=== PATIENT | female | born 2000 | race African-American/Black ===

== ENCOUNTER 2020-02-04 10:22 | Outpatient (CLI) | payer BC, SELFPAY ==
[2020-02-04 11:00] VITALS: BP 138/96; PULSE 85
[2020-02-04 11:15] VITALS: BP 137/94; PULSE 76
[2020-02-04 11:21] LABS: Basophils Percent Auto 0.4 % (0.2-1.2); Eosinophils Absolute Auto 0.3 K/mm3 (0-0.3); Eosinophils Percent Auto 4.3 % (0-4.4); Hematocrit 32.8 % (37.0-47.0); Hemoglobin 11.1 g/dL (12.0-15.0); Immature Granulocyte Absolute 0.02 K/mm3 (0.00-0.031); Immature Granulocyte Percent A 0.3 % (0-0.5); Lymphocytes Absolute Auto 2.63 K/mm3 (0.9-3.2); Lymphocytes Percent Auto 38.6 % (18.3-44.2); Mean Corpuscular HGB Conc 33.8 g/dl (32-36); Mean Corpuscular Hemoglobin 31.4 pg (26-34); Mean Corpuscular Volume 92.9 fl (80-100); Mean Platelet Volume 11.5 fl (7.4-10.4); Monocytes Absolute Auto 0.8 K/mm3 (0.1-0.6); Monocytes Percent Auto 12.2 % (2.6-8.5); Neutrophils Percent Auto 44.2 % (45.5-73.1); Platelet Count Result 217 k/mm3 (150-375); Red Blood Count 3.53 M/mm3 (4.2-5.4); Red Cell Distribution Width 12.8 % (11.5-14.5); White Blood Count 6.8 K/mm3 (4.5-10.0)
[2020-02-04 11:27] LABS: Add Urine Microscopic? YES; Appearance Urine Clear (Clear); Bacteria Urine Trace /hpf; Bilirubin Urine Negative (Negative); Blood Urine Negative (Negative); Color Urine Straw (Yellow); Glucose Urine UA Negative (Negative); Ketones Urine Negative (Negative); Leukocyte Esterase Ur 1+ LEU/UL (NEGATIVE); Nitrate Urine Negative (Negative); Protein Urine Negative (Negative); RBC Urine 0-2 /hpf (0-2); Squamous Epithelial Cell Urine Many /hpf (Few); Urobilinogen Urine Negative mg/dL (<2.0); WBC Urine 0-3 /hpf (0-3)
[2020-02-04 11:30] LABS: Creatinine Urine 48.4 mg/dL; Total Protein Urine Random 12 mg/dL
[2020-02-04 11:33] LABS: Alanine Aminotransferase 9 U/L (4-35); Albumin Level 3.3 g/dL (3.5-5.1); Alkaline Phosphatase 134 U/L (38-126); Aspartate Amino Transferase 18 U/L (14-36); Bilirubin,Total < 0.1 mg/dL (0.2-1.3); Blood Urea Nitrogen 11 mg/dL (7-17); Calcium 9.3 mg/dL (8.4-10.2); Carbon Dioxide 21 mmol/L (22-30); Chloride 107 mmol/L (98-107); Estimated Glomerular Filt Rate > 60; Glucose 89 mg/dL (65-105); Sodium 135 mmol/L (137-145); Uric Acid 4.9 mg/dL (2.5-7.5)
[2020-02-04 12:05] VITALS: BP 144/84; PULSE 86
--- NOTE | 2020-02-04 12:13 | PC.NURSE ---
Liz Leal notified of BP's and lab results. Order for DC and 24 hour urine. No need for repeat BPP.
[2020-02-04 12:15] VITALS: BP 134/90; PULSE 75
[2020-02-04 12:25] VITALS: BP 138/95; PULSE 78
[2020-02-04 12:56] VITALS: BP 138/96; PULSE 80
== END 2020-02-04 12:20 | disposition home or self-care (01) ==
LOC: ANHOBOP 10:53 → ANHOBPP 10:55
PROVIDERS: Visit Provider Obstetrics & Gynecology
DX: O13.9 Gestational [pregnancy-induced] hypertension without significant proteinuria, unspecified trimester (principal)
CPT/HCPCS: 36415; 59025; 80053; 81001; 82570; 84156; 84550; 85025; 87086; 99199

== ENCOUNTER 2020-02-23 19:46 | Inpatient (IN) | payer OTHER, BC, SELFPAY ==
[2020-02-23] VITALS (24 sets, daily range): BP systolic 129–169; BP diastolic 66–104; PULSE 76–135; RESP 15–16; TEMP 36.6; BMI 31.8
--- NOTE | 2020-02-23 17:54 | OBADM ---
This patient, Suma Yang, admitted to the OB room OB Post 115 for observation. Patient/family oriented to hospital policies and general routines including ID bracelet, bed and alarms, visiting hours, pain management, procedures, bathroom and other care routines, personal items, smoking policy, room service/diet, and visiting hours. Patient/Family are encouraged to report perceived risks to care and to ask questions if they do not understand what they are told or what they should do.
[2020-02-23 19:01] LABS: Basophils Percent Auto 0.4 % (0.2-1.2); Eosinophils Absolute Auto 0.2 K/mm3 (0-0.3); Eosinophils Percent Auto 2.5 % (0-4.4); Hematocrit 32.1 % (37.0-47.0); Hemoglobin 11.1 g/dL (12.0-15.0); Immature Granulocyte Absolute 0.02 K/mm3 (0.00-0.031); Immature Granulocyte Percent A 0.3 % (0-0.5); Lymphocytes Absolute Auto 2.51 K/mm3 (0.9-3.2); Lymphocytes Percent Auto 33.3 % (18.3-44.2); Mean Corpuscular HGB Conc 34.6 g/dl (32-36); Mean Corpuscular Hemoglobin 31.3 pg (26-34); Mean Corpuscular Volume 90.4 fl (80-100); Mean Platelet Volume 11.9 fl (7.4-10.4); Monocytes Absolute Auto 0.8 K/mm3 (0.1-0.6); Monocytes Percent Auto 10.9 % (2.6-8.5); Neutrophils Percent Auto 52.6 % (45.5-73.1); Platelet Count Result 219 k/mm3 (150-375); Red Blood Count 3.55 M/mm3 (4.2-5.4); Red Cell Distribution Width 12.7 % (11.5-14.5); White Blood Count 7.5 K/mm3 (4.5-10.0)
[2020-02-23 19:05] LABS: Add Urine Microscopic? YES; Appearance Urine Clear (Clear); Bacteria Urine Trace /hpf; Bilirubin Urine Negative (Negative); Blood Urine Negative (Negative); Color Urine Yellow (Yellow); Glucose Urine UA Negative (Negative); Ketones Urine Negative (Negative); Leukocyte Esterase Ur Trace LEU/UL (NEGATIVE); Mucus Urine Heavy /lpf; Nitrate Urine Negative (Negative); Protein Urine 3+ mg/dL (Negative); RBC Urine 0-2 /hpf (0-2); Specific Grav Ur 1.029 (1.001-1.035); Squamous Epithelial Cell Urine Many /hpf (Few); WBC Urine 0-3 /hpf (0-3)
[2020-02-23 19:32] LABS: Alanine Aminotransferase 7 U/L (4-35); Albumin Level 3.2 g/dL (3.5-5.1); Alkaline Phosphatase 142 U/L (38-126); Anion Gap 6 mmol/L (8-16); Aspartate Amino Transferase 18 U/L (14-36); Bilirubin,Total < 0.1 mg/dL (0.2-1.3); Blood Urea Nitrogen 9 mg/dL (7-17); Calcium 9.2 mg/dL (8.4-10.2); Carbon Dioxide 21 mmol/L (22-30); Chloride 109 mmol/L (98-107); Estimated Glomerular Filt Rate > 60; Glucose 87 mg/dL (65-105); Sodium 136 mmol/L (137-145); Uric Acid 5.2 mg/dL (2.5-7.5)
--- NOTE | 2020-02-23 19:37 | PC.NURSE ---
Updated Dr. Dexter on patient lab results, maternal assessment and vital sings. Updated on FHT and Uterine activity. Orders received.
[2020-02-23 19:55] LABS: Creatinine Urine 386.5 mg/dL
[2020-02-23] MEDS: BETAMETHASONE SOD PHOS/ACETATE 30 MG/5 ML VIAL 12 MG IM (19:55)
[2020-02-23] MEDS: LACTATED RINGERS 1,000 ML 75 ML IV CONT (20:00)
[2020-02-23] MEDS: MAGNESIUM SULF 4 GM/WATER100ML 4 GM/100 ML BAG IVPB (20:00)
[2020-02-23 20:05] LABS: Total Protein Urine Random 341 mg/dL
[2020-02-23] MEDS: LABETALOL HCL INJ 100 MG/20 ML VIAL 20 MG IV PUSH (20:05)
--- NOTE | 2020-02-23 20:26 | PC.NURSE ---
Updated Dr. Dexter on patient lab results. Orders received. NST patient qshift. Vital signs per protocol.
[2020-02-23] MEDS: MAGNESIUM SULF 20GM/WATER500ML 500 ML 50 MG IV CONT (20:43)
--- NOTE | 2020-02-23 23:16 | PC.NURSE ---
2301 blood pressure cuff was not on patient properly upon patient assessment. RN at bedside, re-evaluated blood pressure at 2314 and pt denies any signs and symptoms, blood pressure running more in patients normal. Advised to call out for RN if patient not feeling well or has any questions. Pt verbalizes understanding. Per protocol, blood pressures moved to hourly. JAMAR Wei
[2020-02-24] VITALS (216 sets, daily range): BP systolic 122–156; BP diastolic 76–102; PULSE 59–184; RESP 14–22; TEMP 35.6–36.8; O2SAT 81–100
[2020-02-24] MEDS: CALCIUM CARBONATE (TUMS) 500 MG (200 MG ELEMENTAL) PO ×2 (01:44→09:59)
[2020-02-24] MEDS: ONDANSETRON INJ 4 MG/2 ML VIAL IV PUSH (05:17)
--- NOTE | 2020-02-24 05:22 | PC.NURSE ---
0130 Pt state she is having some heartburn and would like tums to treat. BG
--- NOTE | 2020-02-24 05:22 | PC.NURSE ---
0500 Pt states that the heartburn went away, but she is nauseous and would like medication to help with this. Medication given at 0517. BG
--- NOTE | 2020-02-24 05:23 | PC.NURSE ---
0200 blood pressure cuff was taken off by patient, therefor no pressure was obtained. BG
--- NOTE | 2020-02-24 06:13 | PC.NURSE ---
0610 report given and care turned over to Gudelia Alvarado, RN - BG
[2020-02-24] MEDS: MAGNESIUM SULF 20GM/WATER500ML 500 ML 50 MG IV CONT ×2 (06:49→17:31)
--- NOTE | 2020-02-24 08:20 | PM.IMHP ---
H&P: HPI History of Present Illness Date/Time: 02/24/20 08:20 Chief complaint: Hypertension in Narrative: Suma Yang is a 20 year old female 1 at 34 weeks and 5/7 days. She presented to the clinic with elevated blood pressure and headache. She had some severe range pressures in office. Labor and delivery. She is stable at this time with normal blood pressures and normal labs. She denies any headache or epigastric pain at this time. She does report some increased swelling over the past few days. She reports good movement. She denies any contractions, loss of fluid, vaginal bleeding. She denies any chest pain or shortness of breath. Review of Systems Constitutional: Constitutional: Reports no additional constitutional complaints, Denies fatigue, Denies headache(s), Denies lethargy and Denies weakness Eyes: Eyes: Reports no additional eye complaints, Denies blurry vision and Denies photophobia ENT: Reports as per HPI, Denies headache(s) and Denies neck pain Cardiovascular: Cardiovascular: Denies chest pain, Denies diaphoresis, Denies leg edema, Denies palpitations and Denies dyspnea Respiratory: Respiratory: Denies hemoptysis, Denies dyspnea and Denies wheezing Gastrointestinal: Gastrointestinal: Denies abdominal pain, Denies melena, Denies bloating, Denies hematochezia, Denies nausea and Denies vomiting Genitourinary: Genitourinary: Reports no additional female genitourinary complaints Musculoskeletal: Musculoskeletal: Denies joint swelling, Denies neck pain, Denies numbness and Denies stiffness Neurologic: Denies Abnormal speech present, Denies confusion, Denies headache(s), Denies numbness and Denies weakness Psychiatric: Psychiatric: Denies anxiety, Denies confusion, Denies depression, Denies homicidal ideation and Denies suicidal ideation Endocrine: Endocrine: Denies fatigue and Denies palpitations Allergic/Immunologic: Allergic/Immunologic: Denies wheezing PMFSH Social History Social History Smoking status: Never smoker Substance use: never Gender identity (if verbalized by the patient): Female Spiritual care concerns: No Meds Home Medications and Allergies Home Medications Medication Instructions Recorded Confirmed Type vit no.[id number] 1 tablet PO DAILY 02/23/20 02/23/20 History [ Vitamin] Allergies Allergy/AdvReac Type Severity Reaction Status Date / Time No Known Allergies Allergy Verified 02/23/20 19:09 Vital Signs Vital Signs - 24 hr 02/23/20 18:29 02/23/20 18:30 02/23/20 19:01 Temperature 97.8 F Pulse Rate 84 89 135 H Respiratory Rate Blood Pressure 147/82 H 141/93 H 159/104 H Blood Pressure [Right Arm] 147/82 H Pulse Oximetry 02/23/20 19:04 02/23/20 19:16 02/23/20 19:31 Temperature Pulse Rate 84 82 81 Respiratory Rate Blood Pressure 157/101 H 163/104 H Blood Pressure [Right Arm] 159/104 H Pulse Oximetry 02/23/20 19:46 02/23/20 20:00 02/23/20 20:05 Temperature 97.8 F Pulse Rate 85 85 86 Respiratory Rate 15 Blood Pressure 164/98 H 164/98 H Blood Pressure [Right Arm] Pulse Oximetry 02/23/20 20:09 02/23/20 20:11 02/23/20 20:15 Temperature Pulse Rate 93 94 92 Respiratory Rate Blood Pressure 149/93 H 140/97 H 145/88 H Blood Pressure [Right Arm] Pulse Oximetry 02/23/20 20:20 02/23/20 20:26 02/23/20 20:31 Temperature Pulse Rate 90 93 95 Respiratory Rate Blood Pressure 132/93 H 129/66 138/68 Blood Pressure [Right Arm] Pulse Oximetry 02/23/20 20:43 02/23/20 20:46 02/23/20 21:00 Temperature Pulse Rate 95 91 91 Respiratory Rate 16 Blood Pressure 138/68 160/103 H 158/104 H Blood Pressure [Right Arm] Pulse Oximetry 02/23/20 21:06 02/23/20 21:16 02/23/20 21:31 Temperature Pulse Rate 83 86 90 Respiratory Rate Blood Pressure 150/94 H 158/89 H 142/80 H Blood Pressure [Right Arm] Pulse Oximetry
--- NOTE | 2020-02-24 08:22 | PC.NURSE ---
Dr. Dexter on unit and updated on pt's BP- but it was taken this morning with her laying on her side dozing. Discussed antihypertensives and decision made to start on Labetalol q12 hr and labs now and then every 8 hrs. would like a SVE today and considering starting Cervidil tonight after 2nd dose of Celestone.
[2020-02-24] MEDS: LABETALOL HCL 100 MG TABLET 200 MG PO ×2 (08:38→08:57)
--- NOTE | 2020-02-24 08:40 | PC.NURSE ---
Dr. Dexter in pt room and updated on BP of 153/102 with pt sitting up in bed. Order received to give another 200mg dose of Labetalol and increase to 400 mg BID.
[2020-02-24] MEDS: FAMOTIDINE 20 MG TABLET PO ×2 (08:57→20:53)
[2020-02-24 08:58] LABS: Mean Platelet Volume 11.6 fl (7.4-10.4); Platelet Count Result 249 k/mm3 (150-375)
[2020-02-24 09:14] LABS: Alanine Aminotransferase 11 U/L (4-35); Albumin Level 3.7 g/dL (3.5-5.1); Alkaline Phosphatase 185 U/L (38-126); Anion Gap 9 mmol/L (8-16); Aspartate Amino Transferase 21 U/L (14-36); Bilirubin,Total 0.2 mg/dL (0.2-1.3); Blood Urea Nitrogen 7 mg/dL (7-17); Calcium 8.6 mg/dL (8.4-10.2); Carbon Dioxide 19 mmol/L (22-30); Chloride 104 mmol/L (98-107); Estimated CRCL calculation 160 ml/min; Estimated Glomerular Filt Rate > 60; Glucose 120 mg/dL (65-105); Potassium 4.4 mmol/L (3.4-5.0); Sodium 132 mmol/L (137-145)
[2020-02-24] MEDS: LACTATED RINGERS 1,000 ML 75 ML IV CONT (09:58)
[2020-02-24 17:27] LABS: Mean Platelet Volume 11.6 fl (7.4-10.4); Platelet Count Result 231 k/mm3 (150-375)
[2020-02-24 17:40] LABS: Alanine Aminotransferase 12 U/L (4-35); Albumin Level 3.5 g/dL (3.5-5.1); Alkaline Phosphatase 162 U/L (38-126); Anion Gap 8 mmol/L (8-16); Aspartate Amino Transferase 22 U/L (14-36); Bilirubin,Total 0.1 mg/dL (0.2-1.3); Blood Urea Nitrogen 8 mg/dL (7-17); Calcium 8.1 mg/dL (8.4-10.2); Carbon Dioxide 20 mmol/L (22-30); Chloride 104 mmol/L (98-107); Estimated CRCL calculation 136 ml/min; Estimated Glomerular Filt Rate > 60; Glucose 112 mg/dL (65-105); Potassium 4.2 mmol/L (3.4-5.0); Sodium 132 mmol/L (137-145); Uric Acid 5.4 mg/dL (2.5-7.5)
[2020-02-24] MEDS: DINOPROSTONE 10 MG VAG INSERT VAGINAL (19:18)
--- NOTE | 2020-02-24 19:27 | PC.NURSE ---
Dr. Dexter informed of lab results and pt has a headache. Nursery requesting UDS due to + THC during . Orders received.
[2020-02-24] MEDS: ACETAMINOPHEN 500 MG TABLET 1000 MG PO (19:48)
[2020-02-24] MEDS: BETAMETHASONE SOD PHOS/ACETATE 30 MG/5 ML VIAL 12 MG IM (19:49)
[2020-02-24] MEDS: AMPICILLIN 2 GM/NS 100 ML 2 GM/100 ML BAG IVPB (19:52)
[2020-02-24 20:17] LABS: Amphetamine Screen Urine Negative (Negative); Barbiturate Screen Urine Negative (Negative); Benzodiazepines Screen Urine Negative (Negative); Cannabinoid Screen Urine Negative (Negative); Cocaine Screen Urine Negative (Negative); Methadone Screen Urine Negative (Negative); Opiate Screen Urine Negative (Negative); Phencyclidine Screen Urine Negative (Negative)
[2020-02-24] MEDS: LABETALOL HCL 100 MG TABLET 400 MG PO (20:53)
[2020-02-24] MEDS: AMPICILLIN 1 GM/NS 50 ML 1 GM/50 ML BAG IVPB (23:58)
[2020-02-25] VITALS (350 sets, daily range): BP systolic 116–159; BP diastolic 58–107; PULSE 25–151; RESP 16–18; TEMP 36.7–37.3; O2SAT 80–100
[2020-02-25] MEDS: MAGNESIUM SULF 20GM/WATER500ML 500 ML 50 MG IV CONT ×3 (03:38→23:59)
[2020-02-25] MEDS: AMPICILLIN 1 GM/NS 50 ML 1 GM/50 ML BAG IVPB ×5 (03:55→20:11)
[2020-02-25 05:06] LABS: Hematocrit 31.1 % (37.0-47.0); Hemoglobin 10.5 g/dL (12.0-15.0); Mean Corpuscular HGB Conc 33.8 g/dl (32-36); Mean Corpuscular Hemoglobin 30.9 pg (26-34); Mean Corpuscular Volume 91.5 fl (80-100); Mean Platelet Volume 11.8 fl (7.4-10.4); Platelet Count Result 224 k/mm3 (150-375); Red Cell Distribution Width 12.8 % (11.5-14.5); White Blood Count 9.7 K/mm3 (4.5-10.0)
[2020-02-25 05:30] LABS: Alanine Aminotransferase 10 U/L (4-35); Albumin Level 3.2 g/dL (3.5-5.1); Alkaline Phosphatase 156 U/L (38-126); Anion Gap 6 mmol/L (8-16); Aspartate Amino Transferase 18 U/L (14-36); Bilirubin,Total < 0.1 mg/dL (0.2-1.3); Blood Urea Nitrogen 8 mg/dL (7-17); Calcium 7.2 mg/dL (8.4-10.2); Carbon Dioxide 19 mmol/L (22-30); Chloride 107 mmol/L (98-107); Estimated CRCL calculation 136 ml/min; Estimated Glomerular Filt Rate > 60; Glucose 133 mg/dL (65-105); Potassium 4.5 mmol/L (3.4-5.0); Sodium 132 mmol/L (137-145); Uric Acid 5.5 mg/dL (2.5-7.5)
--- NOTE | 2020-02-25 07:13 | PM.OBPNLAB ---
Pain Control Date/time seen: 02/25/20 07:13 Pain control: tolerating well Pelvic Exam Dilation (cm): 0 Effacement (%): 70 station: -3 Amniotic membrane status: Intact Comments: cervadil removed Contractions Monitor mode: External Contraction pattern: Irregular Contraction intensity: Mild Status status: Category l Assessment and Plan Comments: 1. preeclampsia: plan to have breakfast and then start high dose pitocin BP non severe range will continue with magnesium sulfate and continue to monitor
[2020-02-25 07:51] LABS: Rapid Plasma Reagin Non-Reactive (NonReactive)
[2020-02-25] MEDS: OXYTOCIN 30 UNITS/NS 500 ML 30 UNITS/500 ML BAG 6 UNITS IV CONT (08:28)
[2020-02-25] MEDS: LABETALOL HCL 100 MG TABLET 400 MG PO ×2 (09:00→20:55)
[2020-02-25] MEDS: FAMOTIDINE 20 MG TABLET PO ×2 (09:01→20:55)
[2020-02-25] MEDS: ONDANSETRON INJ 4 MG/2 ML VIAL IV PUSH (15:09)
[2020-02-25] MEDS: LACTATED RINGERS 1,000 ML 75 ML IV CONT (15:47)
--- NOTE | 2020-02-25 16:50 | PM.OBPNLAB ---
Pain Control Date/time seen: 02/25/20 16:50 FHT: 130, moderate variability, reactive, no recent decelerations. AROM with clear fluid and IUPC placed easily. Cervix 2/50/-2. Continue pitocin induction and magnesium due to severe pre-E. Patient is aware and agrees with the plan Pelvic Exam Effacement (%): 70 station: -3 Contractions Monitor mode: External Contraction pattern: Irregular Contraction intensity: Mild Status status: Category l
--- NOTE | 2020-02-25 17:14 | WPDANESEPPF ---
Anes - Initial Pre Proc Eval Procedure: labor epidural Date/Time: 02/25/20 17:14 Surgeon: Rosaline Dexter MD Pre Op Diagnosis: labor pain Pre Op Diagnosis: Hypertension in Patient Data Age: 20 Gender: F Height: 1.65 m Weight: 87 kg Last Vital Signs Temp 37.2 C 02/25/20 13:33 Pulse 90 02/25/20 16:30 Resp 18 02/25/20 13:33 BP 150/102 H 02/25/20 16:30 Pulse Ox 96 02/25/20 17:09 Allergies Allergy/AdvReac Type Severity Reaction Status Date / Time No Known Allergies Allergy Verified 02/23/20 19:09 Home Medications Medication Instructions Recorded Confirmed Type vit no.[id number] 1 tablet PO DAILY 02/23/20 02/23/20 History [ Vitamin] Laboratory Tests 02/24/20 02/24/20 02/24/20 08:51 17:14 17:14 WBC RBC Hgb Hct MCV MCH MCHC RDW Plt Count 231 k/mm3 k/mm3 (150-375) MPV 11.6 fl H fl (7.4-10.4) Sodium 132 mmol/L L mmol/L (137-145) Potassium 4.2 mmol/L mmol/L (3.4-5.0) Chloride 104 mmol/L mmol/L (98-107) Carbon Dioxide 20 mmol/L L mmol/L (22-30) Anion Gap 8 mmol/L mmol/L (8-16) BUN 8 mg/dL mg/dL (7-17) Creatinine 0.60 mg/dL L mg/dL (0.7-1.0) Estim Creat Clear Calc 136 ml/min ml/min Estimated GFR > 60 (59 - ) Glucose 112 mg/dL H mg/dL (65-105) Uric Acid 5.4 mg/dL mg/dL (2.5-7.5) Calcium 8.1 mg/dL L mg/dL (8.4-10.2) Total Bilirubin 0.1 mg/dL L mg/dL (0.2-1.3) AST 22 U/L U/L (14-36) ALT 12 U/L U/L (4-35) Alkaline Phosphatase 162 U/L H U/L (38-126) Total Protein 7.0 g/dL g/dL (6.3-8.2) Albumin 3.5 g/dL g/dL (3.5-5.1) Urine Opiates Screen Urine Methadone Screen Ur Barbiturates Screen Ur Phencyclidine Scrn Ur Amphetamine Screen U Benzodiazepines Scrn Urine Cocaine Screen U Cannabinoids Screen RPR Non-reactive (NonReactive) 02/24/20 02/25/20 02/25/20 19:55 04:56 04:56 WBC 9.7 K/mm3 K/mm3 (4.5-10.0) RBC 3.40 M/mm3 L M/mm3 (4.2-5.4) Hgb 10.5 g/dL L g/dL (12.0-15.0) Hct 31.1 % L % (37.0-47.0) MCV 91.5 fl fl (80-100) MCH 30.9 pg pg (26-34) MCHC 33.8 g/dl g/dl (32-36) RDW 12.8 % % (11.5-14.5) Plt Count 224 k/mm3 k/mm3 (150-375) MPV 11.8 fl H fl (7.4-10.4) Sodium 132 mmol/L L mmol/L (137-145) Potassium 4.5 mmol/L mmol/L (3.4-5.0) Chloride 107 mmol/L mmol/L (98-107) Carbon Dioxide 19 mmol/L L mmol/L (22-30) Anion Gap 6 mmol/L L mmol/L (8-16) BUN 8 mg/dL mg/dL (7-17) Creatinine 0.60 mg/dL L mg/dL (0.7-1.0) Estim Creat Clear Calc 136 ml/min ml/min Estimated GFR > 60 (59 - ) Glucose 133 mg/dL H mg/dL (65-105) Uric Acid 5.5 mg/dL mg/dL (2.5-7.5) Calcium 7.2 mg/dL L mg/dL (8.4-10.2) Total Bilirubin < 0.1 mg/dL L mg/dL (0.2-1.3) AST 18 U/L U/L (14-36) ALT 10 U/L U/L (4-35) Alkaline Phosphatase 156 U/L H U/L (38-126) Total Protein 6.0 g/dL L g/dL (6.3-8.2) Albumin 3.2 g/dL L g/dL (3.5-5.1) Urine Opiates Screen Negative (Negative) Urine Methadone Screen Negative (Negative) Ur Barbiturates Screen Negative (Negative) Ur Phencyclidine Scrn Negative (Negative) Ur Amphetamine Screen Negative (Negative) U Benzodiazepines Scrn Negative (Negative) Urine Cocaine Screen Negative (Negative) U Cannabinoids Screen Negative
[2020-02-26] VITALS (41 sets, daily range): BP systolic 122–151; BP diastolic 55–87; PULSE 70–102; RESP 16–18; TEMP 36.7–37.7; O2SAT 96–100
--- NOTE | 2020-02-26 00:02 | P.PCNOB_ITS ---
OB - Delivery Note Procedure Delivery date: 02/25/20 Procedure: events: Pre-Eclampsia and Labor Induction Intrapartal events: Severe Preeclampsia Induction method: AROM, per misoprostol protocol and per pitocin protocol Delivery monitor: external FHT, external uterine and internal uterine Route of delivery: Laceration description: Periurethral - 1st Degree Delivery repair: vicryl (3-0) Specimen: Yes Estimated blood loss (mL): 112 Anesthesia type: Epidural Disposition: floor [place] Baby Date of : 02/25/20 Time of : 23:45 Weeks of gestation at delivery: 35 gender: Female Weight (pounds): 3 Weight (ounces): 12 presentation: vertex position: Left Occiput Anterior Placenta delivery description: Spontaneous cord vessel description: 3 Vessels and Clamped/Cut score one minute: 5 score five minutes: 9
[2020-02-26] MEDS: OXYTOCIN 30 UNITS/NS 500 ML 30 UNITS/500 ML BAG 125 UNITS IV CONT (00:19)
[2020-02-26] MEDS: WITCH HAZEL 40 PADS 1 PAD TOPICAL (02:15)
[2020-02-26] MEDS: BENZOCAINE 20% AER SPR (*SP) 56 GM CAN 1 SPRAY TOPICAL (02:25)
--- NOTE | 2020-02-26 02:35 | OBPPTRN ---
Patient transferred to post room #278 via wheelchair. Support person, Edna, present. Oriented to unit, room, information board, rooming in, admission packet and security measures. Patient verbalizes understanding.
[2020-02-26] MEDS: LACTATED RINGERS 1,000 ML 75 ML IV CONT ×2 (07:38→19:31)
[2020-02-26] MEDS: MULTIVIT/MIN/PREN/FOL AC/IRON TABLET 1 TAB PO (07:38)
[2020-02-26] MEDS: DOCUSATE SODIUM 100 MG CAPSULE PO ×2 (07:38→17:49)
[2020-02-26] MEDS: IBUPROFEN 600 MG TABLET PO ×2 (07:39→13:35)
[2020-02-26] MEDS: ACETAMINOPHEN 325 MG TABLET 650 MG PO ×2 (07:39→13:35)
[2020-02-26] MEDS: FAMOTIDINE 20 MG TABLET PO (07:39)
--- NOTE | 2020-02-26 08:27 | WPDANLDPN2 ---
Anes-Prog Note L&D Date/Time: 02/26/20 08:27 Comfortable throughout: labor and delivery Neuraxial method: epidural Epidural/Spinal procedure site: clean & non-tender Neuro status: Neuro function grossly intact. Cardiovascular status: normal Respiratory status: normal Airway patency: baseline Mental status: baseline Post-Op hydration status: normal Vital Signs: Last Vital Signs Temp 36.9 C 02/26/20 08:16 Pulse 79 02/26/20 08:16 Resp 18 02/26/20 08:16 BP 125/79 02/26/20 08:16 Pulse Ox 98 02/26/20 02:45 I/O: Intake & Output 02/25/20 02/26/20 02/26/20 23:59 07:59 15:59 Intake Total 011 670 3725 Output Total 1555 900 Balance 600 -815 300 Post-procedural complaints: none Patient feedback: Patient satisfied with anesthetic care.
[2020-02-26] MEDS: LABETALOL HCL 100 MG TABLET 400 MG PO ×2 (09:20→21:03)
[2020-02-26] MEDS: MAGNESIUM SULF 20GM/WATER500ML 500 ML 50 MG IV CONT ×2 (09:21→19:30)
--- NOTE | 2020-02-26 10:30 | P.PNOB_ITS ---
OB - PN: Subj Subjective Date/time seen: 02/26/20 10:30 Patient comments: no complaints, pain well controlled and other (Lochia similar to menses) [place] baby status: doing well Narrative: No WOOTEN/visual changes. OB - PN: Obj Data Labs CBC & Chem 7: 02/25/20 04:56 02/25/20 04:56 OB - PN A/P Assessment and Plan (1) Preeclampsia, severe: Code(s): O14.10 - Severe pre-eclampsia, unspecified trimester Status: Acute Assessment and Plan: Continue magnesium until 24 hours (tonight at 2345) and observe BP closely. Asymptomatic. Continue labetalol 400 mg bid Plan day: 1 (s/p vaginal delivery, doing well) Plan: routine care Time Spent With Patient Time: Total time spent is greater than 50% in coordination of care (as documented) at patient's floor/unit and/or counseling patient: Exam Const: General: no acute distress GI: Inspection: other (Fundus firm and nontender at umbilicus) GI Palp: Yes Soft to palpation and No Tenderness to palpation present (GI) Extrem: General: no edema
[2020-02-27 05:05] VITALS: BP 128/74; PULSE 16; RESP 16; TEMP 37.4; O2SAT 100
[2020-02-27 05:20] LABS: Basophils Percent Auto 0.3 % (0.2-1.2); Eosinophils Percent Auto 0.1 % (0-4.4); Hematocrit 25.7 % (37.0-47.0); Hemoglobin 8.6 g/dL (12.0-15.0); Immature Granulocyte Absolute 0.07 K/mm3 (0.00-0.031); Immature Granulocyte Percent A 0.7 % (0-0.5); Lymphocytes Absolute Auto 2.56 K/mm3 (0.9-3.2); Lymphocytes Percent Auto 26.5 % (18.3-44.2); Mean Corpuscular HGB Conc 33.5 g/dl (32-36); Mean Corpuscular Hemoglobin 30.7 pg (26-34); Mean Corpuscular Volume 91.8 fl (80-100); Monocytes Percent Auto 10.1 % (2.6-8.5); Neutrophils Percent Auto 62.3 % (45.5-73.1); Nucleated Red Blood Cells Perc 0.2 % (0.0-0.2); Platelet Count Result 209 k/mm3 (150-375); Red Cell Distribution Width 12.7 % (11.5-14.5); White Blood Count 9.7 K/mm3 (4.5-10.0)
[2020-02-27 07:45] VITALS: BP 134/70; PULSE 64; RESP 16; TEMP 36.7; O2SAT 100
[2020-02-27] MEDS: POLYSACCHARIDE IRON COMPLEX 150 MG CAPSULE PO (07:55)
[2020-02-27] MEDS: DOCUSATE SODIUM 100 MG CAPSULE PO (07:56)
[2020-02-27 07:57] VITALS: PULSE 64
[2020-02-27] MEDS: IBUPROFEN 600 MG TABLET PO (07:57)
[2020-02-27] MEDS: LABETALOL HCL 100 MG TABLET 400 MG PO (07:57)
[2020-02-27] MEDS: MULTIVIT/MIN/PREN/FOL AC/IRON TABLET 1 TAB PO (07:58)
--- NOTE | 2020-02-27 08:30 | P.PNOB_ITS ---
OB - PN: Subj Subjective Date/time seen: 02/27/20 08:30 Patient comments: no complaints, pain well controlled and other (Lochia similar to menses) [place] baby status: doing well Narrative: No WOOTEN/visual changes. She wants to be released since baby is being transferred OB - PN: Obj Data Labs CBC & Chem 7: 02/27/20 05:03 02/25/20 04:56 Labs: Laboratory Results - last 24 hr 02/27/20 05:03 WBC 9.7 RBC 2.80 L Hgb 8.6 L Hct 25.7 L MCV 91.8 MCH 30.7 MCHC 33.5 RDW 12.7 Plt Count 209 MPV 11.0 H Immature Gran % (Auto) 0.7 H Neut % (Auto) 62.3 Lymph % (Auto) 26.5 [place] % (Auto) 10.1 H Eos % (Auto) 0.1 Baso % (Auto) 0.3 Lymph # (Auto) 2.56 [place] # (Auto) 1.0 H Eos # (Auto) 0.0 Baso # (Auto) 0.0 Abs Immat Gran (auto) 0.07 H Absolute Neuts (auto) 6.0 Absolute Nucleated RBC 0.0 Nucleated RBC % 0.2 OB - PN A/P Assessment and Plan (1) Preeclampsia, severe: Code(s): O14.10 - Severe pre-eclampsia, unspecified trimester Status: Acute Assessment and Plan: BP has been normal off of magnesium, asymptomatic. Continue labetalol. Return to office within 1 week for BP check and to hospital within next couple days for follow up. We reviewed signs/symptoms pre-E and she expressed understanding Plan day: 2 (s/p vaginal delivery, doing well) Plan: routine care, discharge home and other (Follow up in office in 1 week) Time Spent With Patient Time: Total time spent is greater than 50% in coordination of care (as documented) at patient's floor/unit and/or counseling patient: Time with patient: less than 15 minutes Exam Const: General: no acute distress GI: Inspection: other (Fundus firm and nontender below umbilicus) GI Palp: Yes Soft to palpation and No Tenderness to palpation present (GI) Extrem: General: no edema
--- NOTE | 2020-02-27 08:32 | P.DS_ITS ---
DS: Admitting Diagnosis Admitting Diagnosis Admitting Diagnosis: Hypertension in OB - DS: Summary OB Procedures : PIH Mgmt OB Procedures Intrapartum: Spontaneous Vag Delivery OB Procedures: : None Peripartum Data Infant Delivery Method: Natural Vaginal Laceration description: Periurethral - 1st Degree complications: none Status at Discharge Functional status at discharge: independent ambulation Overall status at discharge: patient is progressing back to baseline Time Spent with Patient Time attestation: Total time spent providing and/or coordinating discharge services: Time spent: Less than 30 minutes DS: Data Data Completed and Pending Pending studies at discharge: Pending at discharge 02/26/20 02:24 Surgical [PTH] Routine Labs on day of discharge: Labs from last 24 hours 02/27/20 05:03 WBC 9.7 RBC 2.80 L Hgb 8.6 L Hct 25.7 L MCV 91.8 MCH 30.7 MCHC 33.5 RDW 12.7 Plt Count 209 MPV 11.0 H Immature Gran % (Auto) 0.7 H Neut % (Auto) 62.3 Lymph % (Auto) 26.5 [place] % (Auto) 10.1 H Eos % (Auto) 0.1 Baso % (Auto) 0.3 Lymph # (Auto) 2.56 [place] # (Auto) 1.0 H Eos # (Auto) 0.0 Baso # (Auto) 0.0 Abs Immat Gran (auto) 0.07 H Absolute Neuts (auto) 6.0 Absolute Nucleated RBC 0.0 Nucleated RBC % 0.2 Discharge Plan Discharge Attending physician on discharge: Rosaline Dexter Discharging Clinician: Tennille Patricia Patient Disposition: Home, Self-Care Activity: may shower and pelvic rest Diet: regular Patient Instructions: Antibiotic Form Stand Alone Forms: General Discharge Information Follow-up/Referrals: Rosaline Dexter MD [Physician] - 1 Week Discharge Medications: New labetalol 100 mg Tablet 400 mg PO Q12HR Qty: 60 RF: 0 ibuprofen 600 mg Tablet 600 mg PO Q6H PRN (Reason: Cramping) Qty: 60 RF: 0 Continued Vitamin 27 mg iron- 800 mcg Tablet 1 tablet PO DAILY RF: 0 Date of admission: 02/24/20 10:32 Primary Care Provider: FritzPetr Admitting Provider: Rosaline Dexter Attending physician on admission: Rosaline Dexter
--- NOTE | 2020-02-27 09:38 | PC.NURSE ---
Patient instructed on viewing the discharge video Mother & Baby Care, The First Two Weeks . Patient was given the opportunity and encouraged to ask questions. Patient verbalized understanding of information shared and has been given the mother/baby guide for home reference.
== END 2020-02-27 10:28 | disposition home or self-care (01) | DRG 807 ==
LOC: ANHOBOP 19:46 → ANHOBPP 19:46 → ANHOB2 02-27 08:33 → ANHLDR 02-28 12:54 → ANHOB2 02-28 12:54 → ANHOBPP 02-28 12:54
PROVIDERS: Admitting Provider Obstetrics & Gynecology; PCP Family Medicine Sports Medicine; Visit Provider Obstetrics & Gynecology
DX: O13.4 Gestational [pregnancy-induced] hypertension without significant proteinuria, complicating childbirth (principal); Z37.0 Single live birth; O14.14 Severe pre-eclampsia complicating childbirth; O36.5930 Maternal care for other known or suspected poor fetal growth, third trimester, not applicable or unspecified; O76 Abnormality in fetal heart rate and rhythm complicating labor and delivery; Z3A.34 34 weeks gestation of pregnancy; O71.82 Other specified trauma to perineum and vulva
CPT/HCPCS: 36415; 59025; 80053; 80307; 81001; 82570; 84156; 84550; 85025; 85027; 85049; 86592; 86850; 86900; 86901; 87086; A9270; J0290; J0702; J2405; J2590; J2795; J3010; J3475; J7120